=== PATIENT | female | born 1965 | race Caucasian/White ===

== ENCOUNTER 2016-11-27 22:25 | Inpatient (IN) | payer MEDICAID, OTHER ==
[~2016-11-27] VITALS: Ht 160 cm; Wt 54.5 kg
[~2016-11-27 22:25] MED LIST: DIVA250T4 PO; LITH300C3 PO; QUET400T PO
[2016-11-27] MEDS ORDERED: ZOLPIDEM TARTRATE 10 MG TABLET PO PRN (23:45)
[2016-11-27 23:50] VITALS: BP 131/80
[2016-11-28] MEDS ORDERED: PNEUMOCOCCAL VACCINE POLYVALENT 0.5 ML VIAL [PPSV23] IM ONE (00:30)
[2016-11-28] MEDS ORDERED: INFLUENZA VIRUS VACCINE QVS 2016-17 (3YR+)/PF 60 MCG/0.5 ML SYRINGE IM ONE (00:30)
[2016-11-28 08:29] LABS: BASOPHILS % (AUTO) 0.7 % (0.0-2.0); EOSINOPHILS % (AUTO) 5.1 % (1.0-6.0); HEMATOCRIT 31.7 % (36-46); HEMOGLOBIN 10.2 g/dL (12.0-16.0); LYMPHOCYTES # (AUTO) 1.2 K/uL (1.0-4.8); MEAN CORPUSCULAR HEMOGLOBIN 27.4 pg (26.0-34.0); MEAN CORPUSCULAR HGB CONC 32.2 G/dL (31.0-37.0); MEAN CORPUSCULAR VOLUME 85 fL (80-100); MONOCYTES # (AUTO) 0.3 K/uL (0.1-1.0); MONOCYTES % (AUTO) 6.7 % (2.0-9.0); NEUTROPHILS # (AUTO) 3.3 K/uL (1.8-7.7); NEUTROPHILS % (AUTO) 63.5 % (40.0-70.0); PLATELET COUNT (AUTO) 231 K/uL (150-450); RED BLOOD CELL COUNT(AUTO) 3.74 MIL/uL (4.00-5.20); RED CELL DISTRIBUTION WIDTH 14.9 % (11.5-14.5); WHITE BLOOD COUNT (AUTO) 5.2 K/uL (4.5-11.0)
[2016-11-28 08:45] VITALS: BP 132/96
[2016-11-28 08:52] LABS: HEMOGLOBIN A1C 5.6 % (4.5-6.2)
[2016-11-28] MEDS ORDERED: ACETAMINOPHEN 325 MG TABLET PO PRN (09:15)
[2016-11-28 09:18] LABS: ALANINE AMINOTRANSFERASE 25 U/L (12-78); ALBUMIN 3.2 g/dL (3.4-5.0); ANION GAP 9 mmol/L (8-16); ASPARTATE AMINOTRANSFERASE 19 U/L (15-37); BILIRUBIN,TOTAL 0.3 mg/dL (0.1-1.0); CALCIUM, TOTAL 9.3 mg/dL (8.8-10.5); CARBON DIOXIDE 27 mmol/L (22-29); CHLORIDE 106 mmol/L (98-107); CHOL/HDL RATIO 2.7 (3.9-5.7); CREATININE 0.71 mg/dL (0.60-1.30); GLOMERULAR FILTR. RATE CALC > 60 mL/min (>60); POTASSIUM 4.7 mmol/L (3.5-5.1); SODIUM SERUM 142 mmol/L (136-145); THYROID STIMULATING HORMONE 1.45 uIU/mL (0.36-3.74); TOTAL PROTEIN, SERUM 6.9 g/dL (6.4-8.2); UREA NITROGEN, BLOOD 14 mg/dL (7-18)
[2016-11-28] MEDS: IBUPROFEN 400 MG TABLET PO PRN ×2 (09:23→16:17)
[2016-11-28] MEDS: LORazepam 2 MG TABLET PO PRN ×2 (09:24→16:16)
[2016-11-28] MEDS: LITHIUM CARBONATE 300 MG CAPSULE PO SCH (21:00)
[2016-11-29 02:36] VITALS: BP 117/78
[2016-11-29 08:03] LABS: BASOPHILS % (AUTO) 0.4 % (0.0-2.0); EOSINOPHILS % (AUTO) 3.8 % (1.0-6.0); HEMATOCRIT 30.8 % (36-46); LYMPHOCYTES # (AUTO) 0.9 K/uL (1.0-4.8); LYMPHOCYTES % (AUTO) 18.4 % (22.0-44.0); MEAN CORPUSCULAR HEMOGLOBIN 27.4 pg (26.0-34.0); MEAN CORPUSCULAR HGB CONC 32.6 G/dL (31.0-37.0); MEAN CORPUSCULAR VOLUME 84 fL (80-100); MONOCYTES # (AUTO) 0.3 K/uL (0.1-1.0); MONOCYTES % (AUTO) 5.6 % (2.0-9.0); NEUTROPHILS # (AUTO) 3.7 K/uL (1.8-7.7); NEUTROPHILS % (AUTO) 71.8 % (40.0-70.0); PLATELET COUNT (AUTO) 187 K/uL (150-450); RED BLOOD CELL COUNT(AUTO) 3.65 MIL/uL (4.00-5.20); RED CELL DISTRIBUTION WIDTH 14.5 % (11.5-14.5); WHITE BLOOD COUNT (AUTO) 5.1 K/uL (4.5-11.0)
[2016-11-29 08:36] LABS: ALANINE AMINOTRANSFERASE 22 U/L (12-78); ALBUMIN 3.1 g/dL (3.4-5.0); ANION GAP 8 mmol/L (8-16); ASPARTATE AMINOTRANSFERASE 17 U/L (15-37); BILIRUBIN,TOTAL 0.5 mg/dL (0.1-1.0); CALCIUM, TOTAL 8.7 mg/dL (8.8-10.5); CARBON DIOXIDE 26 mmol/L (22-29); CHLORIDE 105 mmol/L (98-107); CREATININE 0.66 mg/dL (0.60-1.30); GLOMERULAR FILTR. RATE CALC > 60 mL/min (>60); POTASSIUM 4.3 mmol/L (3.5-5.1); SODIUM SERUM 139 mmol/L (136-145); THYROID STIMULATING HORMONE 1.14 uIU/mL (0.36-3.74); TOTAL PROTEIN, SERUM 6.6 g/dL (6.4-8.2); UREA NITROGEN, BLOOD 16 mg/dL (7-18)
[2016-11-29] MEDS: LORazepam 2 MG TABLET PO PRN ×2 (08:36→17:17)
[2016-11-29] MEDS: RisperiDONE 0.5 MG TABLET PO SCH ×2 (08:36→17:16)
[2016-11-29 08:51] LABS: LITHIUM 0.23 mmol/L (0.60-1.20)
[2016-11-29 16:00] VITALS: BP 133/81
[2016-11-29] MEDS: IBUPROFEN 400 MG TABLET PO PRN (18:56)
[2016-11-29] MEDS: LITHIUM CARBONATE 300 MG CAPSULE PO SCH (20:40)
[2016-11-30 03:35] VITALS: BP 113/76
[2016-11-30] MEDS: IBUPROFEN 400 MG TABLET PO PRN ×3 (03:41→20:51)
[2016-11-30] MEDS: RisperiDONE 0.5 MG TABLET PO SCH ×3 (08:00→16:04)
[2016-11-30] MEDS: LORazepam 2 MG TABLET PO PRN (16:04)
[2016-11-30] MEDS: NITROFURANTOIN/NITROFURAN MAC 100 MG CAPSULE [MACROBID] PO SCH (16:04)
[2016-11-30] MEDS: PHENAZOPYRIDINE HCL 200 MG TABLET PO SCH (17:27)
[2016-11-30] MEDS: LITHIUM CARBONATE 300 MG CAPSULE PO SCH (20:39)
[2016-12-01 05:52] VITALS: BP 115/76
[2016-12-01 09:56] LABS: APPEARANCE,URINE CLOUDY (CLEAR); GLUCOSE, URINE (UA) NEGATIVE (NEGATIVE); KETONES,URINE NEGATIVE (NEGATIVE); LEUKOCYTE ESTERASE ,URINE MODERATE (NEGATIVE); OCCULT BLOOD,URINE TRACE (NEGATIVE); PH,URINE 5.5 (5.0-8.0); PROTEIN,URINE SEE CONFIRM (NEGATIVE)
[2016-12-01] MEDS: LORazepam 2 MG TABLET PO PRN ×2 (10:03→16:08)
[2016-12-01] MEDS: NITROFURANTOIN/NITROFURAN MAC 100 MG CAPSULE [MACROBID] PO SCH ×2 (10:03→16:08)
[2016-12-01] MEDS: IBUPROFEN 400 MG TABLET PO PRN ×2 (10:03→16:35)
[2016-12-01] MEDS: RisperiDONE 0.5 MG TABLET PO SCH ×2 (10:03→16:08)
[2016-12-01] MEDS: PHENAZOPYRIDINE HCL 200 MG TABLET PO SCH ×2 (10:03→16:08)
[2016-12-01 10:15] LABS: ADD UA MICROSCOPIC YES
[2016-12-01 10:18] LABS: RBC,URINE 0-2 /HPF (0-2); WBC,URINE 26-50 /HPF (0-5)
[2016-12-01 10:19] LABS: SQUAMOUS EPITHELIAL CELL,UR Few /LPF (None Seen)
[2016-12-01] MEDS: LITHIUM CARBONATE 300 MG CAPSULE PO SCH (20:07)
[2016-12-02 06:18] VITALS: BP 116/70
[2016-12-02] MEDS: PHENAZOPYRIDINE HCL 200 MG TABLET PO SCH ×2 (08:23→16:44)
[2016-12-02] MEDS: NITROFURANTOIN/NITROFURAN MAC 100 MG CAPSULE [MACROBID] PO SCH ×2 (08:23→16:43)
[2016-12-02] MEDS: RisperiDONE 0.5 MG TABLET PO SCH ×2 (08:23→16:43)
[2016-12-02] MEDS: LORazepam 2 MG TABLET PO PRN ×2 (08:33→14:45)
[2016-12-02] MEDS: IBUPROFEN 400 MG TABLET PO PRN (11:55)
[2016-12-02] MEDS: LITHIUM CARBONATE 300 MG CAPSULE PO SCH (20:36)
[2016-12-03] MEDS: LORazepam 2 MG TABLET PO PRN ×2 (08:26→12:40)
[2016-12-03] MEDS: PHENAZOPYRIDINE HCL 200 MG TABLET PO SCH (08:26)
[2016-12-03] MEDS: NITROFURANTOIN/NITROFURAN MAC 100 MG CAPSULE [MACROBID] PO SCH (08:27)
[2016-12-03] MEDS: RisperiDONE 0.5 MG TABLET PO SCH ×2 (08:27→16:10)
== END 2016-12-03 17:00 | disposition home or self-care (01) | DRG 750 ==
LOC: B3A 23:35
PROVIDERS: ADMIT Psychiatry & Neurology Child & Adolescent Psychiatry; ATTEND Psychiatry & Neurology Child & Adolescent Psychiatry
DX: F25.0 Schizoaffective disorder, bipolar type (principal); G62.9 Polyneuropathy, unspecified; R45.851 Suicidal ideations; E03.9 Hypothyroidism, unspecified; J44.9 Chronic obstructive pulmonary disease, unspecified; K59.00 Constipation, unspecified; F60.3 Borderline personality disorder; R45.87 Impulsiveness; Z62.819 Personal history of unspecified abuse in childhood; F11.90 Opioid use, unspecified, uncomplicated; F14.90 Cocaine use, unspecified, uncomplicated; F17.210 Nicotine dependence, cigarettes, uncomplicated; M54.9 Dorsalgia, unspecified; Z28.21 Immunization not carried out because of patient refusal; Z59.0 Homelessness; Z85.43 Personal history of malignant neoplasm of ovary; Z91.5 Personal history of self-harm; Z81.1 Family history of alcohol abuse and dependence; Z72.89 Other problems related to lifestyle
CPT/HCPCS: 80307; 83036; 84439; 84443; 87086; 90471

== ENCOUNTER 2017-03-09 19:31 | Inpatient (IN) | payer MEDICAID, OTHER ==
[~2017-03-09] VITALS: Ht 160 cm; Wt 56.8 kg
[2017-03-09] MEDS ORDERED: ZOLPIDEM TARTRATE 10 MG TABLET PO PRN (21:45)
[2017-03-09] MEDS ORDERED: LORazepam 2 MG TABLET PO PRN (21:45)
[2017-03-09] MEDS ORDERED: OLANZapine 5 MG RAPDIS TABLET PO PRN (21:45)
[2017-03-09] MEDS ORDERED: NITR50CA PO (21:53)
[2017-03-09] MEDS ORDERED: RISP1 PO (21:53)
[2017-03-09] MEDS ORDERED: BENZ1TAB10 PO (21:53)
[2017-03-09 23:17] LABS: APPEARANCE,URINE CLOUDY (CLEAR); GLUCOSE, URINE (UA) NEGATIVE (NEGATIVE); KETONES,URINE NEGATIVE (NEGATIVE); LEUKOCYTE ESTERASE ,URINE MODERATE (NEGATIVE); OCCULT BLOOD,URINE SMALL (NEGATIVE); PROTEIN,URINE TRACE (NEGATIVE)
[2017-03-09 23:20] LABS: BASOPHILS % (AUTO) 0.4 % (0.0-2.0); EOSINOPHILS % (AUTO) 3.8 % (1.0-6.0); HEMATOCRIT 32.4 % (36-46); HEMOGLOBIN 10.9 g/dL (12.0-16.0); LYMPHOCYTES # (AUTO) 1.7 K/uL (1.0-4.8); LYMPHOCYTES % (AUTO) 30.1 % (22.0-44.0); MEAN CORPUSCULAR HEMOGLOBIN 25.9 pg (26.0-34.0); MEAN CORPUSCULAR HGB CONC 33.5 G/dL (31.0-37.0); MEAN CORPUSCULAR VOLUME 77 fL (80-100); MONOCYTES # (AUTO) 0.4 K/uL (0.1-1.0); MONOCYTES % (AUTO) 7.5 % (2.0-9.0); NEUTROPHILS # (AUTO) 3.3 K/uL (1.8-7.7); NEUTROPHILS % (AUTO) 58.2 % (40.0-70.0); PLATELET COUNT (AUTO) 128 K/uL (150-450); RED BLOOD CELL COUNT(AUTO) 4.19 MIL/uL (4.00-5.20); RED CELL DISTRIBUTION WIDTH 17.2 % (11.5-14.5); WHITE BLOOD COUNT (AUTO) 5.7 K/uL (4.5-11.0)
[2017-03-09 23:21] LABS: ADD UA MICROSCOPIC YES; SQUAMOUS EPITHELIAL CELL,UR Moderate /LPF (None Seen); WBC,URINE 26-50 /HPF (0-5)
[2017-03-09 23:29] LABS: ANION GAP 8 mmol/L (8-16); CALCIUM, TOTAL 8.8 mg/dL (8.8-10.5); CARBON DIOXIDE 28 mmol/L (22-29); CHLORIDE 104 mmol/L (98-107); CREATININE 0.73 mg/dL (0.60-1.30); GLOMERULAR FILTR. RATE CALC > 60 mL/min (>60); POTASSIUM 4.1 mmol/L (3.5-5.1); SODIUM SERUM 140 mmol/L (136-145); UREA NITROGEN, BLOOD 11 mg/dL (7-18)
[2017-03-09 23:35] LABS: ALANINE AMINOTRANSFERASE 26 U/L (12-78); ALBUMIN 3.4 g/dL (3.4-5.0); ASPARTATE AMINOTRANSFERASE 14 U/L (15-37); BILIRUBIN,TOTAL 0.5 mg/dL (0.1-1.0); TOTAL PROTEIN, SERUM 6.9 g/dL (6.4-8.2)
[2017-03-10] MEDS ORDERED: SULFAMETHOX/TRIMETH DS 800-160 MG/TABLET PO ONE (01:00)
[2017-03-10 01:32] LABS: RBC MORPHOLOGY COMMENT ABNORMAL RBC MORPH
[2017-03-10 01:43] VITALS: BP 129/82
[2017-03-10] MEDS ORDERED: ZOLPIDEM TARTRATE 10 MG TABLET PO PRN ×2 (02:00→02:15)
[2017-03-10] MEDS ORDERED: OLANZapine 5 MG RAPDIS TABLET PO PRN ×3 (02:00→02:15)
[2017-03-10] MEDS ORDERED: LORazepam 2 MG TABLET PO PRN ×2 (02:00→02:15)
[2017-03-10 02:10] VITALS: BP 128/85
[2017-03-10] MEDS ORDERED: PNEUMOCOCCAL VACCINE POLYVALENT 0.5 ML VIAL [PPSV23] IM ONE (05:30)
[2017-03-10] MEDS: SULFAMETHOX/TRIMETH DS 800-160 MG/TABLET PO SCH ×2 (10:00→16:17)
[2017-03-10] MEDS ORDERED: ACETAMINOPHEN 325 MG TABLET PO PRN ×2 (11:15→12:00)
[2017-03-10] MEDS ORDERED: GuaiFENesin/D-METHORPHAN [SUGAR-FREE] 200-20MG/10 ML SYRUP UDCUP PO PRN (12:00)
[2017-03-10] MEDS ORDERED: PROMETHAZINE HCL 25 MG TABLET PO PRN (12:00)
[2017-03-10] MEDS ORDERED: LOPERAMIDE HCL 2 MG CAPSULE PO PRN (12:00)
[2017-03-10] MEDS ORDERED: MAGNESIUM HYDROXIDE SUSPENSION 30 ML UDCUP PO PRN (12:00)
[2017-03-10] MEDS ORDERED: MAG HYDROX/AL HYDROX/SIMETH ES 30 ML SUSPENSION UDCUP PO PRN (12:00)
[2017-03-10] MEDS ORDERED: HydrOXYzine PAMOATE 50 MG CAPSULE PO PRN (12:00)
[2017-03-10] MEDS ORDERED: TUBERCULIN, PURIFIED PROTEIN DERIVATIVE 5 TU/0.1 ML SYG ID ONE (12:00)
[2017-03-10] MEDS: MULTIVITAMINS WITH MINERALS, THERAPEUTIC TABLET PO SCH (17:00)
[2017-03-10] MEDS: BENZTROPINE MESYLATE 2 MG TABLET PO SCH ×2 (17:00→18:32)
[2017-03-10] MEDS: FOLIC ACID 1 MG TABLET PO SCH (17:00)
[2017-03-10] MEDS: THIAMINE HCL 100 MG TABLET PO SCH (17:00)
[2017-03-10] MEDS: IBUPROFEN 600 MG TABLET PO PRN (17:34)
[2017-03-10] MEDS: LORazepam 2 MG TABLET PO PRN (18:32)
[2017-03-10] MEDS: LITHIUM CARBONATE 300 MG CAPSULE PO SCH (20:34)
[2017-03-10] MEDS: ZOLPIDEM TARTRATE 10 MG TABLET PO PRN (20:54)
[2017-03-10] MEDS ORDERED: RisperiDONE 2 MG TABLET PO SCH ×4 (21:00)
[2017-03-10] MEDS ORDERED: LITHIUM CARBONATE 300 MG CAPSULE PO SCH ×3 (21:00)
[2017-03-11] MEDS: NALTREXONE HCL 50 MG TABLET PO SCH (08:15)
[2017-03-11] MEDS: LORazepam 2 MG TABLET PO PRN (08:15)
[2017-03-11] MEDS: SULFAMETHOX/TRIMETH DS 800-160 MG/TABLET PO SCH ×2 (08:15→16:52)
[2017-03-11] MEDS: MULTIVITAMINS WITH MINERALS, THERAPEUTIC TABLET PO SCH (09:00)
[2017-03-11] MEDS: THIAMINE HCL 100 MG TABLET PO SCH ×2 (09:00→16:53)
[2017-03-11] MEDS: BENZTROPINE MESYLATE 2 MG TABLET PO SCH ×3 (09:00→16:53)
[2017-03-11] MEDS: FOLIC ACID 1 MG TABLET PO SCH (09:00)
[2017-03-11] MEDS: IBUPROFEN 600 MG TABLET PO PRN (16:52)
[2017-03-11] MEDS ORDERED: RisperiDONE 3 MG TABLET PO SCH (21:00)
[2017-03-11] MEDS: LITHIUM CARBONATE 300 MG CAPSULE PO SCH (21:11)
[2017-03-11] MEDS: ZOLPIDEM TARTRATE 10 MG TABLET PO PRN (21:11)
[2017-03-12] MEDS: SULFAMETHOX/TRIMETH DS 800-160 MG/TABLET PO SCH ×2 (08:23→16:03)
[2017-03-12] MEDS: BENZTROPINE MESYLATE 2 MG TABLET PO SCH ×3 (08:27→16:03)
[2017-03-12] MEDS: NALTREXONE HCL 50 MG TABLET PO SCH (08:27)
[2017-03-12] MEDS: MULTIVITAMINS WITH MINERALS, THERAPEUTIC TABLET PO SCH (09:00)
[2017-03-12] MEDS: FOLIC ACID 1 MG TABLET PO SCH (09:00)
[2017-03-12] MEDS: THIAMINE HCL 100 MG TABLET PO SCH ×2 (09:00→16:03)
[2017-03-12] MEDS: IBUPROFEN 600 MG TABLET PO PRN (10:16)
[2017-03-12] MEDS: LORazepam 2 MG TABLET PO PRN (12:49)
[2017-03-12] MEDS ORDERED: LITH300C3 PO (15:22)
[2017-03-12] MEDS ORDERED: RISP3 PO (15:22)
[2017-03-12] MEDS ORDERED: NALT50 PO (15:22)
[2017-03-12] MEDS ORDERED: BENZ2TAB10 PO (15:22)
[2017-03-12] MEDS ORDERED: SULF1TAB42 PO (16:49)
== END 2017-03-12 17:15 | disposition home or self-care (01) | DRG 750 ==
LOC: EMS 21:43 → B3A 22:00 → EMS 03-10 01:45
PROVIDERS: ADMIT Psychiatry & Neurology Psychiatry; ATTEND Psychiatry & Neurology Psychiatry
DX: F25.0 Schizoaffective disorder, bipolar type (principal); N39.0 Urinary tract infection, site not specified; J44.9 Chronic obstructive pulmonary disease, unspecified; F41.9 Anxiety disorder, unspecified; K76.9 Liver disease, unspecified; Z60.2 Problems related to living alone; F17.210 Nicotine dependence, cigarettes, uncomplicated; Z79.899 Other long term (current) drug therapy; Z85.43 Personal history of malignant neoplasm of ovary; Z91.19 Patient's noncompliance with other medical treatment and regimen; Z59.0 Homelessness; Z86.19 Personal history of other infectious and parasitic diseases; Z87.440 Personal history of urinary (tract) infections; Z28.21 Immunization not carried out because of patient refusal
CPT/HCPCS: 87086; 99285

== ENCOUNTER 2017-04-08 20:45 | Emergency (ER) | payer MEDICAID, OTHER ==
[~2017-04-08] VITALS: Ht 157.5 cm; Wt 56.8 kg
[~2017-04-08 20:45] MED LIST changes: +BENZ2TAB10 PO; -DIVA250T4 PO; +NALT50 PO; -QUET400T PO; +RISP3 PO; +SULF1TAB42 PO
[2017-04-08 20:50] VITALS: BP 136/78
[2017-04-08 21:22] LABS: BASOPHILS # (AUTO) 0.02 K/uL (0.00-0.20); BASOPHILS % (AUTO) 0.5 % (0.0-2.0); EOSINOPHILS # (AUTO) 0.18 K/uL (0.00-0.70); EOSINOPHILS % (AUTO) 4.39 % (1.0-6.0); HEMATOCRIT 31.1 % (36-46); HEMOGLOBIN 10.1 g/dL (12.0-16.0); LYMPHOCYTES # (AUTO) 1.2 K/uL (1.0-4.8); MEAN CORPUSCULAR HEMOGLOBIN 26.5 pg (26.0-34.0); MEAN CORPUSCULAR HGB CONC 32.4 G/dL (31.0-37.0); MEAN CORPUSCULAR VOLUME 82 fL (80-100); MONOCYTES # (AUTO) 0.3 K/uL (0.1-1.0); MONOCYTES % (AUTO) 7.4 % (2.0-9.0); NEUTROPHILS # (AUTO) 2.4 K/uL (1.8-7.7); NEUTROPHILS % (AUTO) 58.7 % (40.0-70.0); PLATELET COUNT (AUTO) 148 K/uL (150-450)
[2017-04-08 21:30] LABS: ANION GAP 8 mmol/L (8-16); CARBON DIOXIDE 29 mmol/L (22-29); CHLORIDE 104 mmol/L (98-107); CREATININE 0.86 mg/dL (0.60-1.30); GLOMERULAR FILTR. RATE CALC > 60 mL/min (>60); POTASSIUM 4.1 mmol/L (3.5-5.1); SODIUM SERUM 141 mmol/L (136-145); UREA NITROGEN, BLOOD 14 mg/dL (7-18)
[2017-04-08 21:36] LABS: ALANINE AMINOTRANSFERASE 26 U/L (12-78); ALBUMIN 3.4 g/dL (3.4-5.0); AMYLASE 80 U/L (25-115); ASPARTATE AMINOTRANSFERASE 18 U/L (15-37); BILIRUBIN,TOTAL 0.3 mg/dL (0.1-1.0); TOTAL PROTEIN, SERUM 7.2 g/dL (6.4-8.2)
[2017-04-08] MEDS ORDERED: HYDROCODONE/ACETAMINOPHEN 5-325 MG TABLET PO ONE (22:45)
[2017-04-08] MEDS ORDERED: IBUPROFEN 600 MG TABLET PO ONE (23:00)
== END 2017-04-08 23:09 | disposition home or self-care (01) ==
LOC: EMS 20:48
DX: R10.31 Right lower quadrant pain (principal); J44.9 Chronic obstructive pulmonary disease, unspecified; F17.210 Nicotine dependence, cigarettes, uncomplicated; Z87.440 Personal history of urinary (tract) infections
CPT/HCPCS: 99284

== ENCOUNTER 2017-07-11 07:37 | Emergency (ER) | payer MEDICAID, OTHER ==
[~2017-07-11] VITALS: Ht 160 cm; Wt 56.8 kg
[~2017-07-11 07:37] MED LIST changes: -NALT50 PO; -SULF1TAB42 PO
[2017-07-11] MEDS ORDERED: MORPHINE SULFATE 4 MG/ML SYRINGE IVP ONE (08:15)
[2017-07-11] MEDS ORDERED: SODIUM CHLORIDE 0.9% 500 ML IV ONE (08:15)
[2017-07-11] MEDS ORDERED: ONDANSETRON HCL 4 MG/2 ML VIAL IVP ONE (08:15)
[2017-07-11 09:48] LABS: INR 1.1 (0.9-1.1); PROTHROMBIN TIME 11.4 SEC (9.4-11.6)
[2017-07-11 09:50] LABS: ANION GAP 9 mmol/L (8-16); CALCIUM, TOTAL 8.8 mg/dL (8.8-10.5); CARBON DIOXIDE 26 mmol/L (22-29); CHLORIDE 105 mmol/L (98-107); CREATININE 0.72 mg/dL (0.60-1.30); GLOMERULAR FILTR. RATE CALC > 60 mL/min (>60); POTASSIUM 3.6 mmol/L (3.5-5.1); SODIUM SERUM 140 mmol/L (136-145); UREA NITROGEN, BLOOD 12 mg/dL (7-18)
[2017-07-11 09:56] LABS: ALANINE AMINOTRANSFERASE 21 U/L (12-78); ALBUMIN 3.2 g/dL (3.4-5.0); ASPARTATE AMINOTRANSFERASE 19 U/L (15-37); BILIRUBIN,TOTAL 0.2 mg/dL (0.1-1.0); TOTAL PROTEIN, SERUM 6.7 g/dL (6.4-8.2)
[2017-07-11 10:07] LABS: BASOPHILS # (AUTO) 0.02 K/uL (0.00-0.20); BASOPHILS % (AUTO) 0.5 % (0.0-2.0); EOSINOPHILS # (AUTO) 0.08 K/uL (0.00-0.70); EOSINOPHILS % (AUTO) 2.68 % (1.0-6.0); HEMATOCRIT 24.5 % (36-46); LYMPHOCYTES # (AUTO) 0.6 K/uL (1.0-4.8); LYMPHOCYTES % (AUTO) 18.6 % (22.0-44.0); MEAN CORPUSCULAR HEMOGLOBIN 25.5 pg (26.0-34.0); MEAN CORPUSCULAR HGB CONC 32.7 G/dL (31.0-37.0); MEAN CORPUSCULAR VOLUME 78 fL (80-100); MONOCYTES # (AUTO) 0.2 K/uL (0.1-1.0); NEUTROPHILS # (AUTO) 2.2 K/uL (1.8-7.7); NEUTROPHILS % (AUTO) 71.2 % (40.0-70.0); PLATELET COUNT (AUTO) 100 K/uL (150-450); RED BLOOD CELL COUNT(AUTO) 3.14 MIL/uL (4.00-5.20)
[2017-07-11 10:40] LABS: RBC MORPHOLOGY COMMENT ABNORMAL RBC MORPH
[2017-07-11 11:00] VITALS: BP 116/75
== END 2017-07-11 11:15 | disposition home or self-care (01) ==
LOC: EMS 07:39
DX: K59.00 Constipation, unspecified (principal); J44.9 Chronic obstructive pulmonary disease, unspecified; Z87.891 Personal history of nicotine dependence
CPT/HCPCS: 36415; 74022; 80053; 83690; 84703; 85025; 85610; 96374; 96375; 99285; J2270; J2405; J7030

== ENCOUNTER 2017-08-15 13:55 | Emergency (ER) | payer OTHER ==
[~2017-08-15] VITALS: Ht 160 cm; Wt 56.8 kg
[2017-08-15 14:43] VITALS: BP 114/73
== END 2017-08-15 14:56 | disposition home or self-care (01) ==
LOC: EMS 13:55
DX: B35.1 Tinea unguium (principal); J44.9 Chronic obstructive pulmonary disease, unspecified; Z87.891 Personal history of nicotine dependence
CPT/HCPCS: 99283